=== PATIENT | female | born 1965 | race Two or more races ===

== ENCOUNTER 2023-01-10 06:42 | Day surgery (SDC) | payer OTHER ==
[~2023-01-10] VITALS: Ht 157.5 cm; Wt 59.4 kg
[~2023-01-10 06:42] MED LIST: ATORVASTATIN CA10 MG PO
[2023-01-10] MEDS ORDERED: TRAMADOL HCL50 MG PO (11:30)
[2023-01-10] MEDS ORDERED: KETO10TA2 PO (11:30)
[2023-01-10] MEDS ORDERED: TYLENOL ARTHRI650 MG PO (11:30)
[2023-01-10] MEDS ORDERED: MIRALAX17 GM PO (11:30)
== END 2023-01-10 12:55 | disposition home or self-care (01) ==
LOC: CIR.AMB 06:42
PROVIDERS: ATTEND Surgery
DX: K42.0 Umbilical hernia with obstruction, without gangrene (principal); I10 Essential (primary) hypertension; Z20.822 Contact with and (suspected) exposure to COVID-19
CPT/HCPCS: 49592; C1781